=== PATIENT | female | born 1980 ===

== ENCOUNTER 2022-04-22 09:42 | Emergency (ER) | payer MEDICAID ==
[~2022-04-22] VITALS: Ht 152.4 cm; Wt 59.0 kg
[2022-04-22 11:21] VITALS: BP 135/84
[2022-04-22 11:27] LABS: Urine Bacteria FEW /hpf (None Seen); Urine Blood 3+ /uL (Negative); Urine Hyaline Cast FEW /lpf (0 - 2); Urine WBC 53 /hpf (0 - 5)
[2022-04-22] MEDS ORDERED: cefTRIAXone SOD 1,000 MG VL IM ONE (12:15)
[2022-04-22] MEDS ORDERED: CEPH-510 PO (12:23)
[2022-04-22] MEDS ORDERED: ACET-1158 PO (12:23)
== END 2022-04-22 14:05 | disposition home or self-care (01) ==
LOC: ER 09:42
DX: N39.0 Urinary tract infection, site not specified (principal); Z79.899 Other long term (current) drug therapy; Z88.2 Allergy status to sulfonamides
CPT/HCPCS: 74176; 81001; 96372; 99284; J0696